=== PATIENT | male | born 1965 | race Caucasian/White ===

== ENCOUNTER 2017-11-05 01:01 | Emergency (ER) | payer OTHER ==
[~2017-11-05] VITALS: Ht 180.3 cm
[~2017-11-05 01:01] MED LIST: ANUSOL-HC30 GM RC; COLACE100 MG PO; FISH OIL 1,0001 EAC8; NORCO 5-325 TA1 EACH PO; SIMVASTATIN40 MG
[2017-11-05 01:40] LABS: URINE BILIRUBIN NEGATIVE (Negative); URINE BLOOD NEGATIVE (Negative); URINE CLARITY CLEAR; URINE COLOR YELLOW; URINE GLUCOSE-RANDOM NEGATIVE (Negative); URINE KETONES NEGATIVE (Negative); URINE LEUKOCYTES-REFLEX NEGATIVE (Negative); URINE NITRITE-REFLEX NEGATIVE (Negative); URINE PROTEIN NEGATIVE (Negative); URINE UROBILINOGEN 0.2 E.U./dl (0.2-1.0)
[2017-11-05 01:42] LABS: ABSOLUTE EOSINOPHILS 0.1 thou/uL (0.0-0.7); ABSOLUTE LYMPHOCYTES 1.2 thou/uL (0.8-5.3); ABSOLUTE MONOCYTES 0.7 thou/uL (0.0-1.2); ABSOLUTE NEUTROPHILS 6.3 thou/uL (1.6-8.1); BASOPHILS 0.5 %; EOSINOPHILS 1.4 %; HEMATOCRIT 37.6 % (42.0-52.0); HEMOGLOBIN 13.2 gm/dL (14.0-18.0); LYMPHOCYTES 13.9 %; MCH 33.7 pg (26.0-34.0); MCV 96.2 fL (80.0-100.0); MONOCYTES 8.2 %; MPV 7.1 fl. (7.2-11.1); NUCLEATED RBCS 0 /100WBC; PLATELET COUNT* 199 thou/uL (150-400); RBC 3.91 mil/uL (4.50-6.00); WBC 8.3 thou/uL (4.0-11.0)
[2017-11-05 01:45] LABS: CALCIUM 8.1 mg/dL (8.5-10.1); CREATININE 1.1 mg/dL (0.6-1.3); POTASSIUM 3.8 mmol/L (3.5-5.1)
[2017-11-05 01:50] LABS: ALBUMIN 3.7 g/dL (3.4-5.0); TOTAL BILIRUBIN 0.8 mg/dL (<0.1-1.0); TOTAL PROTEIN 6.8 g/dL (6.4-8.2)
[2017-11-05] MEDS ORDERED: HYDROCODON-ACE1 EAC7 PO (02:49)
[2017-11-05] MEDS ORDERED: FLEXERIL PO (02:49)
[2017-11-05] MEDS ORDERED: PERCOCET 5-3251 EACH PO (03:00)
[2017-11-05 03:02] VITALS: BP 142/64
== END 2017-11-05 03:03 | disposition home or self-care (01) ==
LOC: M.ERS 01:01
PROVIDERS: Emergency Medicine
DX: M54.5 Low back pain (principal); E78.00 Pure hypercholesterolemia, unspecified; F17.210 Nicotine dependence, cigarettes, uncomplicated

== ENCOUNTER 2020-07-02 09:31 | Emergency (ER) | payer OTHER ==
[~2020-07-02] VITALS: Ht 180.3 cm; Wt 85.7 kg
[~2020-07-02 09:31] MED LIST changes: +FLEXERIL PO; +HYDROCODON-ACE1 EAC7 PO; +PERCOCET 5-3251 EACH PO
[2020-07-02] MEDS ORDERED: FLEXERIL PO (09:40)
[2020-07-02] MEDS ORDERED: TRAMADOL 50 MG50 MG PO (09:55)
[2020-07-02 10:07] VITALS: BP 136/73
== END 2020-07-02 10:08 | disposition home or self-care (01) ==
LOC: M.ERS 09:31
DX: S61.511A Laceration without foreign body of right wrist, initial encounter (principal); E78.00 Pure hypercholesterolemia, unspecified; F17.210 Nicotine dependence, cigarettes, uncomplicated; Z87.442 Personal history of urinary calculi; Z88.6 Allergy status to analgesic agent; W26.8XXA Contact with other sharp object(s), not elsewhere classified, initial encounter; Y93.89 Activity, other specified; Y92.89 Other specified places as the place of occurrence of the external cause; Y99.0 Civilian activity done for income or pay